=== PATIENT | female | born 1995 ===

== ENCOUNTER 2020-04-13 01:23 | Emergency (ER) | payer SELFPAY ==
[~2020-04-13] VITALS: Ht 152.4 cm; Wt 66.1 kg
[2020-04-13 01:25] VITALS: BP 122/74
--- NOTE | 2020-04-13 02:10 | NUR ---
Assisted MD with pelvic exam. Patient unable to tolerate exam and stated that she just "wanted to be done with it" Patient eloped from ER
== END 2020-04-13 02:14 | disposition left against medical advice (07) ==
LOC: ED 01:43
DX: N89.8 Other specified noninflammatory disorders of vagina (principal); F17.290 Nicotine dependence, other tobacco product, uncomplicated
CPT/HCPCS: 99284